=== PATIENT | male | born 1990 | race Asian ===

== ENCOUNTER → 2020-06-07 13:05 | Outpatient (CLI) | payer OTHER, SELFPAY ==
--- NOTE | 2020-06-07 13:10 | DI.MRI.S_ITS ---
PROCEDURE: MR SHOULDER LT WO CON INDICATIONS: Impingement syndrome of left shoulder TECHNIQUE: Noncontrast oblique coronal T2 fast spin echo with fat saturation, oblique sagittal T1 spin echo and T2 fast spin echo with fat saturation, axial T1 spin echo and T2 fast spin echo with fat saturation through the shoulder. COMPARISON: [facility], CR, XR SHOULDER 2+ VIEWS LEFT, 02/29/2020, 15:30. FINDINGS: Image quality: Excellent. Rotator cuff: There is low-grade articular surface tearing of the anterior infraspinatus tendon at humeral insertion site extending to the musculotendinous junction. The supraspinatus, infraspinatus, and subscapularis tendons otherwise appear intact throughout. Sagittal images demonstrate no muscle atrophy. Bones and bursae: No bone marrow contusions or fractures. Moderate acromioclavicular joint degeneration. The acromion demonstrates conventional anatomy, without an os acromiale. No pathologic subacromial-subdeltoid or subcoracoid bursal fluid is present. Capsule and soft tissues: There is undercutting of the anterosuperior labrum with an associated paralabral cyst extending into the subcoracoid recess, measuring roughly 32 mm. The long head of the biceps tendon demonstrates normal location and morphology. The rotator interval appears normal, without fibrosis. The coracohumeral ligament is normal in thickness. IMPRESSION: 1. Low-grade partial-thickness articular surface tearing of the infraspinatus tendon. No full-thickness rotator cuff tear. 2. Acromioclavicular joint osteoarthritis. 3. Anterosuperior glenoid labral tear. Dictated by: Cruz Wolff M.D. on 06/07/2020 at 13:42 Approved by: Cruz Wolff M.D. on 06/07/2020 at 13:47
== END ==
PROVIDERS: PCP Orthopaedic Surgery Foot and Ankle Surgery; Referring Provider Orthopaedic Surgery Foot and Ankle Surgery; Visit Provider Orthopaedic Surgery Foot and Ankle Surgery
DX: M75.42 Impingement syndrome of left shoulder (principal); M75.112 Incomplete rotator cuff tear or rupture of left shoulder, not specified as traumatic; M19.012 Primary osteoarthritis, left shoulder; S43.432A Superior glenoid labrum lesion of left shoulder, initial encounter
CPT/HCPCS: 73221

== ENCOUNTER → 2021-12-04 13:11 | Outpatient (CLI) | payer OTHER, SELFPAY ==
--- NOTE | 2021-12-04 | DI.RAD.S_ITS ---
PROCEDURE: FL SHOULDER INJECTION MR/CT LT INDICATIONS: Superior glenoid labrum lesion of left shoulder COMPARISON: None. TECHNIQUE: The indications, alternatives, benefits, risks, and complications of the procedure were explained to the patient. Written informed consent was obtained and placed in the chart. The shoulder was examined fluoroscopically and a site for needle placement chosen for entry into the glenohumeral joint from an anterior approach. The skin was prepped and draped in a sterile fashion, and 1% lidocaine infiltrated from skin down to joint capsule. A spinal needle was inserted into the glenohumeral joint, and a small amount of iodinated contrast media injected to confirm intra-articular placement of the needle tip. This was followed by approximately 12 mL dilute solution of a gadolinium containing MR contrast agent. The needle was removed and a dressing was applied. The patient was given postprocedural instructions and sent to the MR suite for MR imaging. FINDINGS: A single fluoroscopic spot image demonstrates intra-articular location of injected iodinated contrast. IMPRESSION: Successful fluoroscopically guided administration of dilute Gadolinium solution into the shoulder joint for MR arthrogram. Dictated by: Cisco Mancilla M.D. on 12/04/2021 at 17:42 Approved by: Cisco Mancilla M.D. on 12/04/2021 at 17:43
--- NOTE | 2021-12-04 | DI.MRI.S_ITS ---
PROCEDURE: MR SHOULDER LT W CON INDICATIONS: Superior glenoid labrum lesion of left shoulder TECHNIQUE: After the administration of 12 mL of dilute intra-articular Gadolinium contrast, oblique coronal T1 and T2 spin echo with fat saturation, oblique sagittal T1 spin echo with and without fat saturation, oblique sagittal T2 fast spin echo with fat saturation, axial T1 spin echo with fat saturation through the shoulder. COMPARISON: [facility], MR, MR SHOULDER LT WO CON, 06/07/2020, 13:38. FINDINGS: Image quality: Excellent. Rotator cuff: No change in low-grade articular surface tearing of the anterior infraspinatus tendon at the humeral insertion site. The supraspinatus, infraspinatus, and subscapularis tendons otherwise appear intact throughout. No rotator cuff muscle atrophy on sagittal images. Bones and bursae: No bone marrow contusions or fractures. Mild acromioclavicular joint degeneration. The acromion demonstrates conventional anatomy, without an os acromiale. Capsule and soft tissues: There is undercutting of the anterosuperior labrum, with an associated paralabral cyst, as before. The long head of the biceps tendon demonstrates normal location and morphology. The rotator interval appears normal, without fibrosis. The coracohumeral ligament is of normal thickness. No intra-articular bodies. IMPRESSION: 1. No significant change in anterosuperior labral tear. 2. Acromioclavicular joint osteoarthritis. 3. Low-grade partial-thickness tearing of the infraspinatus tendon. Dictated by: Cruz Wolff M.D. on 12/04/2021 at 14:52 Transcribed by: SAHRA on 12/04/2021 at 14:55 Approved by: Cruz Wolff M.D. on 12/04/2021 at 16:40
== END ==
PROVIDERS: PCP Student in an Organized Health Care Education/Training Program; Referring Provider Orthopaedic Surgery; Visit Provider Orthopaedic Surgery
DX: S43.432A Superior glenoid labrum lesion of left shoulder, initial encounter (principal); M19.012 Primary osteoarthritis, left shoulder
CPT/HCPCS: 23350; 73222